=== PATIENT | female | born 1965 | race Caucasian/White ===

== ENCOUNTER → 2017-03-31 | Day surgery (SDC) | payer BC ==
[2017-03-27 11:59] LABS: CONDITION Y; Hematocrit 39.6 % (36.0-46.0); Hemoglobin 13.3 g/dL (12.2-16.2)
[2017-03-27 12:13] LABS: Basophils # (auto) 0 uL; Basophils % (auto) 1.1 % (0.0-2.0); Eosinophils # (auto) 0.5 uL; Lymphocytes # (auto) 1.4 uL; Lymphocytes % (auto) 30.7 % (10.0-50.0); Mean Corpuscular Hgb Conc. 33.5 g/dL (32.0-36.0); Mean Corpuscular Volume 92.4 fL (80.0-100.0); Mean Platelet Volume 8.4 fL (7.4-10.4); Monocytes # (auto) 0.2 uL; Monocytes % (auto) 4.8 % (0.0-12.0); Neutrophils # (auto) 2.4 uL; Neutrophils % (auto) 52.4 % (37.0-80.0); Platelet Count (auto) 305 10^3/uL (140-450); White Blood Cell 4.6 10^3/uL (4.4-10.8)
[2017-03-27 12:17] LABS: INR 0.92 (0.9-1.15); Partial Thromboplastin Time 25.7 sec (22.64-33.71)
[~2017-03-31] VITALS: Ht 160 cm; Wt 65.8 kg
[~2017-03-31] MED LIST: FLUMAZENIL 0.1 MG/ML INJ 10ML MDV IV ONE; MIDAZOLAM HCL 5 MG/ML-1ML VIAL ONE; NALOXONE HCL 0.4 MG/ML VIAL ONE; SODIUM CHLORIDE LOCK 10 ML ONE; diphenhdrAMINE HCL 50 MG/1 ML VL ONE; fentaNYL CITRATE 100 MCG/2 ML VL ONE
[2017-03-31] MEDS: fentaNYL CITRATE 100 MCG/2 ML VL ONE ×3 (08:47→08:57)
[2017-03-31] MEDS: MIDAZOLAM HCL 5 MG/ML-1ML VIAL ONE ×3 (08:47→08:57)
[2017-03-31 09:35] VITALS: BP 116/73
== END | disposition home or self-care (01) ==
LOC: GI 07:53 → EDUNIT# 07:53
PROVIDERS: ATTEND Internal Medicine Gastroenterology
DX: Z12.11 Encounter for screening for malignant neoplasm of colon (principal); K64.8 Other hemorrhoids; J45.909 Unspecified asthma, uncomplicated
CPT/HCPCS: 36415; 45378; 85025; 85610; 85730; J1200; J2250; J3010

== ENCOUNTER → 2017-07-13 | Outpatient (CLI) | payer BC | END | disposition home or self-care (01) | LOC: LAB 08:36 | PROVIDERS: ATTEND Obstetrics & Gynecology | DX: N95.1 Menopausal and female climacteric states (principal); R53.83 Other fatigue | CPT/HCPCS: 36415; 82670; 83001; 83002; 84403; 84443 ==

== ENCOUNTER → 2018-03-26 | Outpatient (CLI) | payer BC ==
[~2018-03-26] MED LIST changes: +ALBUAER3 IN; +CIPR-217 PO; -FLUMAZENIL 0.1 MG/ML INJ 10ML MDV IV ONE; -MIDAZOLAM HCL 5 MG/ML-1ML VIAL ONE; -NALOXONE HCL 0.4 MG/ML VIAL ONE; +PANT40TA2 PO; -SODIUM CHLORIDE LOCK 10 ML ONE; -diphenhdrAMINE HCL 50 MG/1 ML VL ONE; -fentaNYL CITRATE 100 MCG/2 ML VL ONE
== END | disposition home or self-care (01) ==
LOC: MERGE 09:04 → XYW 09:04
PROVIDERS: ATTEND Internal Medicine
DX: R10.9 Unspecified abdominal pain (principal)
CPT/HCPCS: 76700

== ENCOUNTER → 2018-04-04 | Outpatient (CLI) | payer BC ==
[2018-04-04 09:46] LABS: Urine Bacteria NONE SEEN /hpf (None Seen); Urine Blood 2+ /uL (Negative); Urine Mucus FEW (None Seen); Urine Specific Gravity 1.025 (1.001-1.035); Urine WBC 5 /hpf (0 - 5)
[2018-04-04 09:54] LABS: Hematocrit 40.7 % (36.0-46.0); Hemoglobin 13.5 g/dL (12.2-16.2); Mean Corpuscular Hemoglobin 30.2 pg (28.0-32.0); Mean Corpuscular Hgb Conc. 33.1 g/dL (32.0-36.0); Mean Corpuscular Volume 91.1 fL (80.0-100.0); Platelet Count (auto) 232 10^3/uL (140-450); Red Blood Cells 4.47 10^6/uL (4.0-5.20); Red Cell Distribution Width 13.3 % (11.8-14.3); White Blood Cell 3.9 10^3/uL (4.4-10.8)
[2018-04-04 09:56] LABS: Band Neutrophils % (manual) 0; Basophils % (manual) 0 (0.0-2.0); Blast Cells 0; INR 0.88 (0.9-1.15); Metamyelocytes % 0; Myelocytes % 0; Partial Thromboplastin Time 27.1 sec (23.78-33.04); Promyelocytes % 0; Prothrombin Time 9.5 sec (9.27-12.13); Reactive Lymphocytes 0
[2018-04-04 10:41] LABS: Albumin 3.8 g/dL (3.4-5.0); Bilirubin, Total 0.4 mg/dL (0.2-1.0); Calcium 8.5 mg/dL (8.5-10.1); Total Protein 7.5 g/dL (6.4-8.2)
[2018-04-04 11:03] LABS: Eosinophils % (manual) 18 (0-7); Lymphocytes % (manual) 30 (10.0-50.0); Monocytes % (manual) 8 (0-12)
== END | disposition home or self-care (01) ==
LOC: LAB 09:14 → MERGE 09:14
PROVIDERS: ATTEND Internal Medicine
DX: Z00.01 Encounter for general adult medical examination with abnormal findings (principal); R10.9 Unspecified abdominal pain
CPT/HCPCS: 36415; 80053; 80061; 81001; 82150; 82306; 83036; 83690; 84403; 84443; 85007; 85027; 85610; 85730

== ENCOUNTER 2018-04-09 07:52 | Day surgery (SDC) | payer BC ==
[~2018-04-09] VITALS: Ht 162.6 cm; Wt 64.4 kg
[2018-04-09] MEDS ORDERED: SODIUM CHLORIDE LOCK 10 ML ONE (08:03)
[2018-04-09] MEDS ORDERED: LIDOCAINE VISCOUS 2% 15ML UD ONE (08:03)
[2018-04-09] MEDS ORDERED: FLUMAZENIL 0.1 MG/ML INJ 10ML MDV IV ONE (08:04)
[2018-04-09] MEDS ORDERED: NALOXONE HCL 0.4 MG/ML VIAL ONE (08:04)
[2018-04-09] MEDS ORDERED: diphenhdrAMINE HCL 50 MG/1 ML VL ONE (08:04)
[2018-04-09] MEDS: fentaNYL CITRATE 100 MCG/2 ML VL ONE ×2 (09:00→09:03)
[2018-04-09] MEDS: MIDAZOLAM HCL 5 MG/ML-1ML VIAL ONE ×2 (09:00→09:03)
[2018-04-09 09:39] VITALS: BP 117/63
== END 2018-04-09 10:54 | disposition home or self-care (01) ==
LOC: SUR 07:52
PROVIDERS: ATTEND Internal Medicine Gastroenterology
DX: K29.50 Unspecified chronic gastritis without bleeding (principal); J45.909 Unspecified asthma, uncomplicated; Z88.0 Allergy status to penicillin; Z98.890 Other specified postprocedural states; Z80.49 Family history of malignant neoplasm of other genital organs; Z79.899 Other long term (current) drug therapy; Z79.2 Long term (current) use of antibiotics
CPT/HCPCS: 43239; 88305; 88342; J1200; J2250; J3010; A6257

== ENCOUNTER → 2018-04-18 | Outpatient (CLI) | payer BC ==
[2018-04-18 09:48] LABS: Basophils # (auto) 0.1 uL; Basophils % (auto) 1.4 % (0.0-2.0); Eosinophils # (auto) 0.4 uL; Eosinophils % (auto) 8.1 % (0.0-7.0); Hematocrit 38.6 % (36.0-46.0); Hemoglobin 12.9 g/dL (12.2-16.2); Lymphocytes # (auto) 1.6 uL; Lymphocytes % (auto) 33.9 % (10.0-50.0); Mean Corpuscular Hemoglobin 30.4 pg (28.0-32.0); Mean Corpuscular Hgb Conc. 33.4 g/dL (32.0-36.0); Mean Corpuscular Volume 91.2 fL (80.0-100.0); Monocytes # (auto) 0.3 uL; Monocytes % (auto) 5.9 % (0.0-12.0); Neutrophils # (auto) 2.3 uL; Neutrophils % (auto) 50.7 % (37.0-80.0); Nucleated Red Blood Cells % 0.1 %; Platelet Count (auto) 291 10^3/uL (140-450); Red Blood Cells 4.23 10^6/uL (4.0-5.20); Red Cell Distribution Width 13.2 % (11.8-14.3); White Blood Cell 4.6 10^3/uL (4.4-10.8)
[2018-04-18 09:52] LABS: Urine Bacteria NONE SEEN /hpf (None Seen); Urine Blood Negative /uL (Negative); Urine Specific Gravity 1.006 (1.001-1.035); Urine WBC 1 /hpf (0 - 5)
[2018-04-18 10:11] LABS: BUN/Creatinine Ratio 22.7; Calcium 8.4 mg/dL (8.5-10.1); Potassium 4.3 mmol/L (3.5-5.1)
== END | disposition home or self-care (01) ==
LOC: LAB 09:30
PROVIDERS: ATTEND Internal Medicine
DX: R10.30 Lower abdominal pain, unspecified (principal); Z88.0 Allergy status to penicillin
CPT/HCPCS: 36415; 80048; 81001; 85025

== ENCOUNTER → 2019-07-11 | Outpatient (CLI) | payer BC ==
[~2019-07-11] MED LIST changes: -CIPR-217 PO; -PANT40TA2 PO
[2019-07-11 07:52] LABS: Basophils # (auto) 0.1 uL; Basophils % (auto) 1.5 % (0.0-2.0); Eosinophils # (auto) 0.1 uL; Eosinophils % (auto) 1.7 % (0.0-7.0); Hematocrit 40.2 % (36.0-46.0); Hemoglobin 13.4 g/dL (12.2-16.2); Lymphocytes # (auto) 0.8 uL; Lymphocytes % (auto) 23.7 % (10.0-50.0); Mean Corpuscular Hemoglobin 31.3 pg (28.0-32.0); Mean Corpuscular Hgb Conc. 33.4 g/dL (32.0-36.0); Mean Corpuscular Volume 93.6 fL (80.0-100.0); Monocytes # (auto) 0.2 uL; Monocytes % (auto) 5.8 % (0.0-12.0); Neutrophils # (auto) 2.3 uL; Neutrophils % (auto) 67.3 % (37.0-80.0); Nucleated Red Blood Cells % 0.1 %; Platelet Count (auto) 238 10^3/uL (140-450); Red Blood Cells 4.29 10^6/uL (4.0-5.20); Red Cell Distribution Width 12.7 % (11.8-14.3); White Blood Cell 3.5 10^3/uL (4.4-10.8)
[2019-07-11 08:22] LABS: Albumin 4.2 g/dL (3.4-5.0); Calcium 9.3 mg/dL (8.5-10.1)
[2019-07-11 08:29] LABS: BUN/Creatinine Ratio 16.7; Bilirubin, Total 0.7 mg/dL (0.2-1.0); Total Protein 7.6 g/dL (6.4-8.2)
== END | disposition home or self-care (01) ==
LOC: LAB 07:22
PROVIDERS: ATTEND Internal Medicine
DX: E78.5 Hyperlipidemia, unspecified (principal); I10 Essential (primary) hypertension; Z88.0 Allergy status to penicillin
CPT/HCPCS: 36415; 80053; 80061; 85025

== ENCOUNTER → 2019-11-07 | Outpatient (CLI) | payer BC ==
[2019-11-07 08:05] LABS: Basophils # (auto) 0.1 10 ^3/uL (0-0.2); Basophils % (auto) 1.6 % (0.0-2.0); Eosinophils # (auto) 0.2 10 ^3/uL (0-0.8); Eosinophils % (auto) 6.3 % (0.0-7.0); Hematocrit 38.6 % (36.0-46.0); Hemoglobin 13.1 g/dL (12.2-16.2); Lymphocytes # (auto) 1.3 10 ^3/uL (0.4-5.4); Mean Corpuscular Hemoglobin 31.3 pg (28.0-32.0); Mean Corpuscular Hgb Conc. 33.9 g/dL (32.0-36.0); Mean Corpuscular Volume 92.2 fL (80.0-100.0); Monocytes # (auto) 0.2 10 ^3/uL (0-1.3); Monocytes % (auto) 5.5 % (0.0-12.0); Neutrophils # (auto) 1.5 10 ^3/uL (1.6-8.6); Neutrophils % (auto) 47.6 % (37.0-80.0); Platelet Count (auto) 236 10^3/uL (140-450); Red Blood Cells 4.18 10^6/uL (4.0-5.20); Red Cell Distribution Width 12.5 % (11.8-14.3); White Blood Cell 3.2 10^3/uL (4.4-10.8)
[2019-11-07 08:27] LABS: Calcium 8.9 mg/dL (8.5-10.1); Potassium 4.1 mmol/L (3.5-5.1)
[2019-11-07 08:35] LABS: BUN/Creatinine Ratio 19.3; Bilirubin, Total 0.4 mg/dL (0.2-1.0); Total Protein 7.3 g/dL (6.4-8.2)
== END | disposition home or self-care (01) ==
LOC: LAB 07:20
PROVIDERS: ATTEND Obstetrics & Gynecology
DX: E78.5 Hyperlipidemia, unspecified (principal); R53.83 Other fatigue
CPT/HCPCS: 36415; 80053; 80061; 83036; 85025

== ENCOUNTER → 2020-08-03 | Outpatient (CLI) | payer OTHER | END | disposition home or self-care (01) | LOC: LAB 11:40 | PROVIDERS: ATTEND Internal Medicine | DX: Z20.828 Contact with and (suspected) exposure to other viral communicable diseases (principal) | CPT/HCPCS: C9803; U0003 ==

== ENCOUNTER → 2020-10-02 | Outpatient (CLI) | payer BC ==
[2020-10-02 09:08] LABS: Basophils # (auto) 0.1 10 ^3/uL (0-0.2); Basophils % (auto) 1.9 % (0.0-2.0); Eosinophils # (auto) 0.1 10 ^3/uL (0-0.8); Eosinophils % (auto) 4.5 % (0.0-7.0); Hematocrit 39.6 % (36.0-46.0); Hemoglobin 13.4 g/dL (12.2-16.2); Lymphocytes % (auto) 36.2 % (10.0-50.0); Mean Corpuscular Hemoglobin 31.1 pg (28.0-32.0); Mean Corpuscular Hgb Conc. 33.8 g/dL (32.0-36.0); Mean Corpuscular Volume 91.9 fL (80.0-100.0); Monocytes # (auto) 0.2 10 ^3/uL (0-1.3); Monocytes % (auto) 5.7 % (0.0-12.0); Neutrophils # (auto) 1.4 10 ^3/uL (1.6-8.6); Neutrophils % (auto) 51.7 % (37.0-80.0); Nucleated Red Blood Cells % 0.1 %; Platelet Count (auto) 215 10^3/uL (140-450); Red Cell Distribution Width 12.5 % (11.8-14.3); White Blood Cell 2.7 10^3/uL (4.4-10.8)
[2020-10-02 09:31] LABS: Potassium 3.8 mmol/L (3.5-5.1)
[2020-10-02 09:41] LABS: Albumin 4.2 g/dL (3.4-5.0); BUN/Creatinine Ratio 21.8; Bilirubin, Total 0.6 mg/dL (0.2-1.0); Calcium 8.9 mg/dL (8.5-10.1)
== END | disposition home or self-care (01) ==
LOC: LAB 08:35
PROVIDERS: ATTEND Obstetrics & Gynecology
DX: Z00.00 Encounter for general adult medical examination without abnormal findings (principal)
CPT/HCPCS: 36415; 80053; 80061; 82670; 83036; 84403; 84443; 85025; 86335

== ENCOUNTER → 2021-01-01 | Outpatient (CLI) | payer BC ==
[2021-01-01 11:59] LABS: Basophils # (auto) 0.1 10 ^3/uL (0-0.2); Basophils % (auto) 1.2 % (0.0-2.0); Eosinophils # (auto) 0.1 10 ^3/uL (0-0.8); Eosinophils % (auto) 1.4 % (0.0-7.0); Hematocrit 40.1 % (36.0-46.0); Hemoglobin 13.4 g/dL (12.2-16.2); Lymphocytes # (auto) 1.4 10 ^3/uL (0.4-5.4); Lymphocytes % (auto) 29.6 % (10.0-50.0); Mean Corpuscular Hemoglobin 30.4 pg (28.0-32.0); Mean Corpuscular Hgb Conc. 33.3 g/dL (32.0-36.0); Mean Corpuscular Volume 91.4 fL (80.0-100.0); Monocytes # (auto) 0.2 10 ^3/uL (0-1.3); Monocytes % (auto) 4.4 % (0.0-12.0); Neutrophils % (auto) 63.4 % (37.0-80.0); Nucleated Red Blood Cells % 0.1 %; Platelet Count (auto) 246 10^3/uL (140-450); Red Blood Cells 4.39 10^6/uL (4.0-5.20); Red Cell Distribution Width 12.6 % (11.8-14.3); White Blood Cell 4.8 10^3/uL (4.4-10.8)
[2021-01-01 12:06] LABS: INR 0.97 (0.9-1.15); Partial Thromboplastin Time 24.9 sec (23.0-31.2)
[2021-01-01 12:24] LABS: Albumin 4.1 g/dL (3.4-5.0); BUN/Creatinine Ratio 21.9; Calcium 8.8 mg/dL (8.5-10.1); Potassium 3.6 mmol/L (3.5-5.1)
[2021-01-01 12:26] LABS: Bilirubin, Total 0.7 mg/dL (0.2-1.0); Total Protein 7.5 g/dL (6.4-8.2)
[2021-01-01 12:30] LABS: Folate (Folic Acid) 20.19 ng/mL (5.38-24)
== END | disposition home or self-care (01) ==
LOC: LAB 11:31
PROVIDERS: ATTEND Internal Medicine
DX: E78.9 Disorder of lipoprotein metabolism, unspecified (principal)
CPT/HCPCS: 36415; 80053; 82306; 82607; 82746; 83036; 84443; 85025; 85610; 85730

== ENCOUNTER 2021-02-20 08:00 | Outpatient (CLI) | payer BC ==
[2021-02-20 09:39] LABS: Cholesterol 182 mg/dL (< 200); HDL Cholesterol 79 mg/dL (40-59); LDL Cholesterol 94 mg/dL (< 100); Triglycerides 45 mg/dL (< 150)
== END 2021-02-20 08:03 | disposition home or self-care (01) ==
LOC: LAB 08:00
PROVIDERS: ATTEND Internal Medicine
DX: Z00.00 Encounter for general adult medical examination without abnormal findings (principal)
CPT/HCPCS: 36415; 80061

== ENCOUNTER → 2021-04-21 | Outpatient (CLI) | payer BC ==
[2021-04-21 08:43] LABS: Calcium 8.9 mg/dL (8.5-10.1); Potassium 3.9 mmol/L (3.5-5.1)
[2021-04-21 08:47] LABS: BUN/Creatinine Ratio 18.3; Bilirubin, Total 0.7 mg/dL (0.2-1.0); Total Protein 7.6 g/dL (6.4-8.2)
== END | disposition home or self-care (01) ==
LOC: LAB 08:11
PROVIDERS: ATTEND Internal Medicine
DX: I10 Essential (primary) hypertension (principal)
CPT/HCPCS: 36415; 80053

== ENCOUNTER → 2021-09-17 | Outpatient (CLI) | payer BC ==
[~2021-09-17] MED LIST changes: +BUPIVACAINE HCL 0.25% P/F 10 ML VIAL ONE; +IOHEXOL 300 MG/ML 100ML BOTTLE IJ ONE; +LIDOCAINE 2%HCL (LOCAL ANESTH.) INJ 20ML MDV ONE; +diphenhdrAMINE HCL 50 MG/1 ML VL ONE; +methylPREDNISolone ACETATE 80 MG/ML VL ONE
== END | disposition home or self-care (01) ==
LOC: XY 13:54
PROVIDERS: ATTEND Orthopaedic Surgery Adult Reconstructive Orthopaedic Surgery
DX: M25.511 Pain in right shoulder (principal)
CPT/HCPCS: 20610; 73020; J1040; J1200; Q9967; 76000; J3490

== ENCOUNTER → 2021-10-08 | Outpatient (CLI) | payer BC ==
[~2021-10-08] MED LIST changes: -BUPIVACAINE HCL 0.25% P/F 10 ML VIAL ONE; -IOHEXOL 300 MG/ML 100ML BOTTLE IJ ONE; -LIDOCAINE 2%HCL (LOCAL ANESTH.) INJ 20ML MDV ONE; -diphenhdrAMINE HCL 50 MG/1 ML VL ONE; -methylPREDNISolone ACETATE 80 MG/ML VL ONE
== END | disposition home or self-care (01) ==
LOC: LAB 12:19
PROVIDERS: ATTEND Internal Medicine
DX: U07.1 COVID-19 (principal)
CPT/HCPCS: C9803; U0003

== ENCOUNTER → 2021-12-22 | Outpatient (CLI) | payer BC ==
[2021-12-22 10:27] LABS: Basophils # (auto) 0 10 ^3/uL (0-0.2); Basophils % (auto) 0.9 % (0.0-2.0); Eosinophils # (auto) 0.1 10 ^3/uL (0-0.8); Eosinophils % (auto) 2.3 % (0.0-7.0); Hematocrit 40.7 % (36.0-46.0); Hemoglobin 13.9 g/dL (12.2-16.2); Lymphocytes # (auto) 1.2 10 ^3/uL (0.4-5.4); Lymphocytes % (auto) 30.6 % (10.0-50.0); Mean Corpuscular Hemoglobin 31.2 pg (28.0-32.0); Mean Corpuscular Hgb Conc. 34.1 g/dL (32.0-36.0); Mean Corpuscular Volume 91.4 fL (80.0-100.0); Monocytes # (auto) 0.2 10 ^3/uL (0-1.3); Monocytes % (auto) 6.2 % (0.0-12.0); Neutrophils # (auto) 2.4 10 ^3/uL (1.6-8.6); Nucleated Red Blood Cells % 0.1 %; Red Blood Cells 4.45 10^6/uL (4.0-5.20); Red Cell Distribution Width 12.6 % (11.8-14.3)
[2021-12-22 10:53] LABS: Albumin 4.1 g/dL (3.4-5.0); BUN/Creatinine Ratio 16.1; Calcium 8.9 mg/dL (8.5-10.1); Potassium 3.8 mmol/L (3.5-5.1)
[2021-12-22 10:55] LABS: Bilirubin, Total 0.7 mg/dL (0.2-1.0); Total Protein 7.5 g/dL (6.4-8.2)
[2021-12-23 09:21] LABS: Urine Bacteria NONE SEEN /hpf (None Seen); Urine Blood TRACE /uL (Negative); Urine Specific Gravity 1.008 (1.001-1.035); Urine WBC 4 /hpf (0 - 5)
== END | disposition home or self-care (01) ==
LOC: LAB 09:49
PROVIDERS: ATTEND Internal Medicine
DX: Z00.00 Encounter for general adult medical examination without abnormal findings (principal)
CPT/HCPCS: 36415; 80053; 81001; 84439; 84443; 85025

== ENCOUNTER → 2022-04-22 | Outpatient (CLI) | payer BC ==
[2022-04-22 16:54] LABS: Basophils # (auto) 0.1 10 ^3/uL (0-0.2); Basophils % (auto) 1.3 % (0.0-2.0); Eosinophils # (auto) 0.4 10 ^3/uL (0-0.8); Eosinophils % (auto) 7.1 % (0.0-7.0); Hematocrit 43.2 % (36.0-46.0); Lymphocytes # (auto) 1.8 10 ^3/uL (0.4-5.4); Lymphocytes % (auto) 32.8 % (10.0-50.0); Mean Corpuscular Hemoglobin 30.2 pg (28.0-32.0); Mean Corpuscular Hgb Conc. 32.3 g/dL (32.0-36.0); Mean Corpuscular Volume 93.5 fL (80.0-100.0); Monocytes # (auto) 0.3 10 ^3/uL (0-1.3); Neutrophils # (auto) 2.9 10 ^3/uL (1.6-8.6); Neutrophils % (auto) 53.8 % (37.0-80.0); Red Blood Cells 4.62 10^6/uL (4.0-5.20); Red Cell Distribution Width 12.5 % (11.8-14.3); White Blood Cell 5.4 10^3/uL (4.4-10.8)
[2022-04-22 17:16] LABS: Albumin 4.5 g/dL (3.4-5.0); Calcium 9.4 mg/dL (8.5-10.1); Potassium 4.1 mmol/L (3.5-5.1)
[2022-04-22 17:20] LABS: BUN/Creatinine Ratio 14.9; Bilirubin, Total 0.6 mg/dL (0.2-1.0); CRP High Sensitivity 0.07 mg/dL (< 0.3); Total Protein 7.7 g/dL (6.4-8.2)
[2022-04-22 17:21] LABS: INR 0.94 (0.9-1.15); Partial Thromboplastin Time 26.8 sec (24.6-33.4)
[2022-04-22 17:24] LABS: Folate (Folic Acid) 20.97 ng/mL (5.38-24)
== END | disposition home or self-care (01) ==
LOC: LAB 16:11
PROVIDERS: ATTEND Internal Medicine
DX: I10 Essential (primary) hypertension (principal)
CPT/HCPCS: 36415; 80053; 82306; 82607; 82746; 84443; 85025; 85610; 85652; 85730; 86141

== ENCOUNTER → 2022-07-29 | Outpatient (CLI) | payer BC | END | disposition home or self-care (01) | LOC: LAB 13:20 | PROVIDERS: ATTEND Obstetrics & Gynecology | DX: R53.83 Other fatigue (principal) | CPT/HCPCS: 82306; 82607 ==

== ENCOUNTER → 2022-08-04 | Outpatient (CLI) | payer BC ==
[~2022-08-04] VITALS: Ht 160 cm; Wt 63.5 kg
[~2022-08-04] MED LIST changes: +ADENOSINE 53 MG in GIVE UN-DILUTED 0 ML IV ONE
== END | disposition home or self-care (01) ==
LOC: XYW 07:41 → EEVIPCON 07:41
PROVIDERS: ATTEND Internal Medicine
DX: R07.9 Chest pain, unspecified (principal); R06.02 Shortness of breath; E78.5 Hyperlipidemia, unspecified
CPT/HCPCS: 78452; 93017; A9500; J0153

== ENCOUNTER → 2022-08-17 | Outpatient (CLI) | payer BC ==
[~2022-08-17] MED LIST changes: -ADENOSINE 53 MG in GIVE UN-DILUTED 0 ML IV ONE
[2022-08-17 11:07] LABS: BUN/Creatinine Ratio 16.7; Calcium 8.8 mg/dL (8.5-10.1)
[2022-08-17 11:16] LABS: Basophils # (auto) 0.1 10 ^3/uL (0-0.2); Eosinophils # (auto) 0.1 10 ^3/uL (0-0.8); Eosinophils % (auto) 1.2 % (0.0-7.0); Hematocrit 42.9 % (36.0-46.0); Hemoglobin 14.1 g/dL (12.2-16.2); Lymphocytes # (auto) 1.2 10 ^3/uL (0.4-5.4); Lymphocytes % (auto) 21.6 % (10.0-50.0); Mean Corpuscular Hemoglobin 30.6 pg (28.0-32.0); Mean Corpuscular Volume 92.8 fL (80.0-100.0); Monocytes # (auto) 0.3 10 ^3/uL (0-1.3); Neutrophils # (auto) 4.1 10 ^3/uL (1.6-8.6); Neutrophils % (auto) 71.2 % (37.0-80.0); Nucleated Red Blood Cells % 0.1 %; Red Blood Cells 4.62 10^6/uL (4.0-5.20); Red Cell Distribution Width 12.1 % (11.8-14.3); White Blood Cell 5.7 10^3/uL (4.4-10.8)
== END | disposition home or self-care (01) ==
LOC: LAB 10:17
PROVIDERS: ATTEND Psychiatry & Neurology Neurology
DX: G50.0 Trigeminal neuralgia (principal)
CPT/HCPCS: 36415; 80048; 85025

== ENCOUNTER → 2022-09-06 | Outpatient (CLI) | payer BC ==
[2022-09-06 14:39] LABS: INR 0.96 (0.9-1.15); Partial Thromboplastin Time 25.9 sec (24.6-33.4)
[2022-09-06 14:43] LABS: Basophils # (auto) 0 10 ^3/uL (0-0.2); Basophils % (auto) 1.1 % (0.0-2.0); Eosinophils # (auto) 0.1 10 ^3/uL (0-0.8); Eosinophils % (auto) 3.4 % (0.0-7.0); Hemoglobin 13.3 g/dL (12.2-16.2); Lymphocytes # (auto) 0.9 10 ^3/uL (0.4-5.4); Lymphocytes % (auto) 21.8 % (10.0-50.0); Mean Corpuscular Hemoglobin 31.9 pg (28.0-32.0); Mean Corpuscular Hgb Conc. 34.9 g/dL (32.0-36.0); Mean Corpuscular Volume 91.5 fL (80.0-100.0); Monocytes # (auto) 0.3 10 ^3/uL (0-1.3); Monocytes % (auto) 6.5 % (0.0-12.0); Neutrophils # (auto) 2.8 10 ^3/uL (1.6-8.6); Neutrophils % (auto) 67.2 % (37.0-80.0); Nucleated Red Blood Cells % 0.1 %; Red Blood Cells 4.15 10^6/uL (4.0-5.20); Red Cell Distribution Width 12.2 % (11.8-14.3); White Blood Cell 4.2 10^3/uL (4.4-10.8)
[2022-09-06 14:57] LABS: Albumin 3.9 g/dL (3.4-5.0); Calcium 8.6 mg/dL (8.5-10.1); Potassium 3.6 mmol/L (3.5-5.1)
[2022-09-06 14:59] LABS: BUN/Creatinine Ratio 12.5
[2022-09-06 15:01] LABS: Bilirubin, Total 0.4 mg/dL (0.2-1.0); Total Protein 7.1 g/dL (6.4-8.2)
== END | disposition home or self-care (01) ==
LOC: LAB 14:07
PROVIDERS: ATTEND Internal Medicine
DX: I10 Essential (primary) hypertension (principal)
CPT/HCPCS: 36415; 80053; 85025; 85610; 85730

== ENCOUNTER → 2022-12-02 | Outpatient (CLI) | payer BC ==
[2022-12-02 14:27] LABS: Basophils # (auto) 0 10 ^3/uL (0-0.2)
[2022-12-02 14:33] LABS: Eosinophils # (auto) 0.1 10 ^3/uL (0-0.8); Eosinophils % (auto) 1.9 % (0.0-7.0); Hematocrit 39.3 % (36.0-46.0); Hemoglobin 13.3 g/dL (12.2-16.2); Lymphocytes # (auto) 1.3 10 ^3/uL (0.4-5.4); Lymphocytes % (auto) 30.6 % (10.0-50.0); Mean Corpuscular Hemoglobin 31.3 pg (28.0-32.0); Mean Corpuscular Hgb Conc. 33.8 g/dL (32.0-36.0); Mean Corpuscular Volume 92.6 fL (80.0-100.0); Monocytes # (auto) 0.3 10 ^3/uL (0-1.3); Monocytes % (auto) 7.6 % (0.0-12.0); Neutrophils # (auto) 2.6 10 ^3/uL (1.6-8.6); Neutrophils % (auto) 58.9 % (37.0-80.0); Nucleated Red Blood Cells % 0.1 %; Red Blood Cells 4.24 10^6/uL (4.0-5.20); Red Cell Distribution Width 12.6 % (11.8-14.3); White Blood Cell 4.4 10^3/uL (4.4-10.8)
[2022-12-02 15:00] LABS: Albumin 3.9 g/dL (3.4-5.0); Calcium 8.4 mg/dL (8.5-10.1); Potassium 3.5 mmol/L (3.5-5.1)
[2022-12-02 15:03] LABS: BUN/Creatinine Ratio 14.8 (10.0-20.0); Bilirubin, Total 0.8 mg/dL (0.2-1.0)
== END | disposition home or self-care (01) ==
LOC: LAB 14:09
PROVIDERS: ATTEND Internal Medicine
DX: I10 Essential (primary) hypertension (principal)
CPT/HCPCS: 36415; 80053; 85025

== ENCOUNTER → 2023-02-22 | Outpatient (CLI) | payer BC ==
[2023-02-22 14:22] LABS: Albumin 3.9 g/dL (3.4-5.0); Calcium 7.5 mg/dL (8.5-10.1); Potassium 3.5 mmol/L (3.5-5.1)
[2023-02-22 14:26] LABS: BUN/Creatinine Ratio 13.2 (10.0-20.0); Bilirubin, Total 0.4 mg/dL (0.2-1.0); Total Protein 6.9 g/dL (6.4-8.2)
== END | disposition home or self-care (01) ==
LOC: LAB 13:33
PROVIDERS: ATTEND Internal Medicine
DX: I10 Essential (primary) hypertension (principal)
CPT/HCPCS: 36415; 80053

== ENCOUNTER → 2023-06-02 | Outpatient (CLI) | payer BC ==
[2023-06-02 10:30] LABS: Basophils # (auto) 0.1 10 ^3/uL (0-0.2); Basophils % (auto) 1.1 % (0.0-2.0); Eosinophils # (auto) 0.1 10 ^3/uL (0-0.8); Eosinophils % (auto) 2.5 % (0.0-7.0); Hematocrit 36.7 % (36.0-46.0); Hemoglobin 12.9 g/dL (12.2-16.2); Lymphocytes # (auto) 1.2 10 ^3/uL (0.4-5.4); Lymphocytes % (auto) 25.3 % (10.0-50.0); Mean Corpuscular Hgb Conc. 35.1 g/dL (32.0-36.0); Mean Corpuscular Volume 94.1 fL (80.0-100.0); Monocytes # (auto) 0.3 10 ^3/uL (0-1.3); Monocytes % (auto) 7.5 % (0.0-12.0); Neutrophils # (auto) 2.9 10 ^3/uL (1.6-8.6); Neutrophils % (auto) 63.6 % (37.0-80.0); Red Cell Distribution Width 12.8 % (11.8-14.3); White Blood Cell 4.6 10^3/uL (4.4-10.8)
[2023-06-02 10:55] LABS: Anion Gap 6 (5-15); Carbon Dioxide 29 mmol/L (20-30); Chloride 98 mmol/L (98-107); Potassium 3.9 mmol/L (3.5-5.1); Sodium 133 mmol/L (136-145)
[2023-06-02 10:57] LABS: Calcium 8.7 mg/dL (8.5-10.1)
[2023-06-02 11:02] LABS: BUN/Creatinine Ratio 16.5 (10.0-20.0); Blood Urea Nitrogen 13 mg/dL (9-23); Glucose 90 mg/dL (74-106)
[2023-06-02 11:13] LABS: Partial Thromboplastin Time 28.1 SEC (24.5-34.5); Prothrombin Time 10.5 sec (9.3-11.8)
== END | disposition home or self-care (01) ==
LOC: LAB 10:07
DX: Z01.812 Encounter for preprocedural laboratory examination (principal); G50.0 Trigeminal neuralgia
CPT/HCPCS: 36415; 80048; 85025; 85610; 85730

== ENCOUNTER → 2023-10-13 | Outpatient (CLI) | payer BC ==
[2023-10-13 11:05] LABS: Basophils # (auto) 0.1 10 ^3/uL (0-0.2); Basophils % (auto) 1.2 % (0.0-2.0); Eosinophils # (auto) 0.1 10 ^3/uL (0-0.8); Eosinophils % (auto) 1.1 % (0.0-7.0); Hematocrit 42.1 % (36.0-46.0); Hemoglobin 14.1 g/dL (12.2-16.2); Lymphocytes # (auto) 1.2 10 ^3/uL (0.4-5.4); Lymphocytes % (auto) 23.8 % (10.0-50.0); Mean Corpuscular Hemoglobin 31.2 pg (28.0-32.0); Mean Corpuscular Hgb Conc. 33.4 g/dL (32.0-36.0); Mean Corpuscular Volume 93.4 fL (80.0-100.0); Monocytes # (auto) 0.3 10 ^3/uL (0-1.3); Monocytes % (auto) 5.2 % (0.0-12.0); Neutrophils # (auto) 3.4 10 ^3/uL (1.6-8.6); Neutrophils % (auto) 68.7 % (37.0-80.0); Nucleated Red Blood Cells % 0.1 %; Red Blood Cells 4.51 10^6/uL (4.0-5.20); Red Cell Distribution Width 12.6 % (11.8-14.3)
[2023-10-13 11:35] LABS: Alanine Aminotransferase 21 U/L (7-40); Albumin 4.8 g/dL (3.2-4.8); Alkaline Phosphatase 75 U/L (46-116); Anion Gap 6 (5-15); Aspartate Aminotransferase 21 U/L (13-40); BUN/Creatinine Ratio 10.1 (10.0-20.0); Bilirubin, Total 0.8 mg/dL (0.2-1.0); Blood Urea Nitrogen 8 mg/dL (9-23); Calcium 9.4 mg/dL (8.5-10.1); Carbon Dioxide 29 mmol/L (20-30); Chloride 103 mmol/L (98-107); Glucose 96 mg/dL (74-106); Potassium 3.7 mmol/L (3.5-5.1); Sodium 138 mmol/L (136-145); Total Protein 6.9 g/dL (5.7-8.2)
== END | disposition home or self-care (01) ==
LOC: LAB 10:55
PROVIDERS: ATTEND Psychiatry & Neurology Neurology
DX: G43.009 Migraine without aura, not intractable, without status migrainosus (principal)
CPT/HCPCS: 36415; 80053; 85025

== ENCOUNTER → 2023-12-22 | Outpatient (CLI) | payer BC | END | disposition home or self-care (01) | LOC: LAB 14:18 | PROVIDERS: ATTEND Family Medicine | DX: L82.1 Other seborrheic keratosis (principal); D48.5 Neoplasm of uncertain behavior of skin ==

== ENCOUNTER → 2024-02-08 | Outpatient (CLI) | payer BC | END | disposition home or self-care (01) | LOC: XYW 08:09 | PROVIDERS: ATTEND Internal Medicine | DX: E04.1 Nontoxic single thyroid nodule (principal) | CPT/HCPCS: 78014; A9516 ==

== ENCOUNTER → 2024-03-15 | Outpatient (CLI) | payer BC ==
[2024-03-15 10:29] LABS: Basophils # (auto) 0.1 10 ^3/uL (0-0.2); Basophils % (auto) 1.6 % (0.0-2.0); Eosinophils # (auto) 0.1 10 ^3/uL (0-0.8); Eosinophils % (auto) 2.3 % (0.0-7.0); Hematocrit 39.2 % (36.0-46.0); Hemoglobin 13.5 g/dL (12.2-16.2); Lymphocytes # (auto) 1.4 10 ^3/uL (0.4-5.4); Lymphocytes % (auto) 34.8 % (10.0-50.0); Mean Corpuscular Hemoglobin 32.1 pg (28.0-32.0); Mean Corpuscular Hgb Conc. 34.4 g/dL (32.0-36.0); Mean Corpuscular Volume 93.3 fL (80.0-100.0); Monocytes # (auto) 0.2 10 ^3/uL (0-1.3); Monocytes % (auto) 5.1 % (0.0-12.0); Neutrophils # (auto) 2.3 10 ^3/uL (1.6-8.6); Neutrophils % (auto) 56.2 % (37.0-80.0); Nucleated Red Blood Cells % 0.2 %; Red Blood Cells 4.21 10^6/uL (4.0-5.20); Red Cell Distribution Width 12.8 % (11.8-14.3); White Blood Cell 4.2 10^3/uL (4.4-10.8)
[2024-03-15 10:40] LABS: Alanine Aminotransferase 19 U/L (7-40); Albumin 4.7 g/dL (3.2-4.8); Alkaline Phosphatase 77 U/L (46-116); Anion Gap 5 (5-15); Aspartate Aminotransferase 12 U/L (13-40); BUN/Creatinine Ratio 11.9 (10.0-20.0); Bilirubin, Total 0.8 mg/dL (0.2-1.0); Blood Urea Nitrogen 10 mg/dL (9-23); Calcium 9.5 mg/dL (8.7-10.4); Carbon Dioxide 29 mmol/L (20-30); Chloride 105 mmol/L (98-107); Glucose 99 mg/dL (74-106); Sodium 139 mmol/L (136-145); Total Protein 6.9 g/dL (5.7-8.2)
== END | disposition home or self-care (01) ==
LOC: LAB 09:58
PROVIDERS: ATTEND Internal Medicine
DX: Z00.01 Encounter for general adult medical examination with abnormal findings (principal)
CPT/HCPCS: 36415; 80053; 84403; 85025

== ENCOUNTER → 2024-06-05 | Outpatient (CLI) | payer BC ==
[2024-06-05 13:30] LABS: Basophils # (auto) 0 10 ^3/uL (0-0.2); Basophils % (auto) 1.1 % (0.0-2.0); Eosinophils # (auto) 0.1 10 ^3/uL (0-0.8); Eosinophils % (auto) 2.7 % (0.0-7.0); Hematocrit 41.5 % (36.0-46.0); Hemoglobin 13.8 g/dL (12.2-16.2); Lymphocytes # (auto) 1.4 10 ^3/uL (0.4-5.4); Lymphocytes % (auto) 32.6 % (10.0-50.0); Mean Corpuscular Hemoglobin 31.6 pg (28.0-32.0); Mean Corpuscular Hgb Conc. 33.4 g/dL (32.0-36.0); Mean Corpuscular Volume 94.8 fL (80.0-100.0); Monocytes # (auto) 0.2 10 ^3/uL (0-1.3); Monocytes % (auto) 5.1 % (0.0-12.0); Neutrophils # (auto) 2.5 10 ^3/uL (1.6-8.6); Neutrophils % (auto) 58.5 % (37.0-80.0); Nucleated Red Blood Cells % 0.2 %; Platelet Count (auto) 259 10^3/uL (140-450); Red Blood Cells 4.37 10^6/uL (4.0-5.20); Red Cell Distribution Width 12.8 % (11.8-14.3); White Blood Cell 4.3 10^3/uL (4.4-10.8)
[2024-06-05 13:34] LABS: Alanine Aminotransferase 21 U/L (7-40); Albumin 4.5 g/dL (3.2-4.8); Alkaline Phosphatase 71 U/L (46-116); Anion Gap 6 (5-15); Aspartate Aminotransferase 14 U/L (13-40); BUN/Creatinine Ratio 12.4 (10.0-20.0); Bilirubin, Total 0.6 mg/dL (0.2-1.0); Blood Urea Nitrogen 13 mg/dL (9-23); Calcium 9.2 mg/dL (8.7-10.4); Carbon Dioxide 28 mmol/L (20-31); Chloride 107 mmol/L (98-107); Glucose 91 mg/dL (74-106); Potassium 4.3 mmol/L (3.5-5.1); Sodium 141 mmol/L (136-145)
[2024-06-05 13:35] LABS: Total Protein 6.7 g/dL (5.7-8.2)
== END | disposition home or self-care (01) ==
LOC: LAB 13:03
PROVIDERS: ATTEND Internal Medicine
DX: I10 Essential (primary) hypertension (principal)
CPT/HCPCS: 36415; 80053; 85025

== ENCOUNTER → 2024-06-12 | Outpatient (CLI) | payer BC | END | disposition home or self-care (01) | LOC: LAB 09:44 | DX: E28.1 Androgen excess (principal) | CPT/HCPCS: 84270 ==

== ENCOUNTER → 2024-10-24 | Outpatient (CLI) | payer BC ==
[2024-10-24 07:13] LABS: Basophils # (auto) 0 10 ^3/uL (0-0.2); Basophils % (auto) 1.4 % (0.0-2.0); Eosinophils # (auto) 0.1 10 ^3/uL (0-0.8); Eosinophils % (auto) 4.2 % (0.0-7.0); Hemoglobin 14.4 g/dL (12.2-16.2); Lymphocytes # (auto) 1.3 10 ^3/uL (0.4-5.4); Mean Corpuscular Hemoglobin 31.6 pg (28.0-32.0); Mean Corpuscular Hgb Conc. 33.4 g/dL (32.0-36.0); Mean Corpuscular Volume 94.5 fL (80.0-100.0); Monocytes # (auto) 0.2 10 ^3/uL (0-1.3); Monocytes % (auto) 6.6 % (0.0-12.0); Neutrophils # (auto) 1.7 10 ^3/uL (1.6-8.6); Neutrophils % (auto) 50.8 % (37.0-80.0); Nucleated Red Blood Cells % 0.1 %; Platelet Count (auto) 252 10^3/uL (140-450); Red Blood Cells 4.55 10^6/uL (4.0-5.20); White Blood Cell 3.4 10^3/uL (4.4-10.8)
[2024-10-24 07:40] LABS: Alanine Aminotransferase 22 U/L (7-40); Albumin 4.6 g/dL (3.2-4.8); Alkaline Phosphatase 71 U/L (46-116); Anion Gap 5 (5-15); Aspartate Aminotransferase 14 U/L (13-40); BUN/Creatinine Ratio 16.9 (10.0-20.0); Bilirubin, Total 0.8 mg/dL (0.2-1.0); Blood Urea Nitrogen 14 mg/dL (9-23); Calcium 9.5 mg/dL (8.7-10.4); Carbon Dioxide 29 mmol/L (20-31); Chloride 104 mmol/L (98-107); Glucose 89 mg/dL (74-106); Potassium 4.2 mmol/L (3.5-5.1); Sodium 138 mmol/L (136-145); Total Protein 6.8 g/dL (5.7-8.2); Triglycerides 90 mg/dL (< 150)
[2024-10-24 07:44] LABS: Cholesterol 210 mg/dL (< 200); HDL Cholesterol 76 mg/dL (40-59); LDL Cholesterol 116 mg/dL (< 100)
== END | disposition home or self-care (01) ==
LOC: LAB 06:57
PROVIDERS: ATTEND Internal Medicine
DX: I10 Essential (primary) hypertension (principal); R06.02 Shortness of breath; E78.5 Hyperlipidemia, unspecified
CPT/HCPCS: 36415; 80053; 80061; 84443; 85025

== ENCOUNTER → 2024-10-31 | Outpatient (CLI) | payer BC ==
[2024-10-31 13:16] LABS: Basophils # (auto) 0.1 10 ^3/uL (0-0.2); Basophils % (auto) 1.1 % (0.0-2.0); Eosinophils # (auto) 0.1 10 ^3/uL (0-0.8); Lymphocytes # (auto) 1.6 10 ^3/uL (0.4-5.4); Mean Corpuscular Hgb Conc. 34.2 g/dL (32.0-36.0); Mean Corpuscular Volume 93.6 fL (80.0-100.0); Monocytes # (auto) 0.4 10 ^3/uL (0-1.3); Monocytes % (auto) 4.8 % (0.0-12.0); Neutrophils # (auto) 5.7 10 ^3/uL (1.6-8.6); Neutrophils % (auto) 73.1 % (37.0-80.0); Nucleated Red Blood Cells % 0.1 %; Platelet Count (auto) 256 10^3/uL (140-450); Red Blood Cells 4.39 10^6/uL (4.0-5.20); Red Cell Distribution Width 12.8 % (11.8-14.3); White Blood Cell 7.8 10^3/uL (4.4-10.8)
== END | disposition home or self-care (01) ==
LOC: LAB 12:46
PROVIDERS: ATTEND Internal Medicine
DX: D72.819 Decreased white blood cell count, unspecified (principal)
CPT/HCPCS: 36415; 85025

== ENCOUNTER → 2024-11-08 | Outpatient (CLI) | payer BC ==
[2024-11-10 08:07] LABS: AFP Serum Tumor Marker 2.3 ng/mL (0.0-9.2)
== END | disposition home or self-care (01) ==
LOC: LAB 10:53
PROVIDERS: ATTEND Internal Medicine
DX: R74.01 Elevation of levels of liver transaminase levels (principal)
CPT/HCPCS: 36415; 82105; 82626; 84403

== ENCOUNTER → 2025-06-10 | Outpatient (CLI) | payer BC ==
[2025-06-10 07:17] LABS: Triglycerides 80 mg/dL (< 150)
[2025-06-10 07:21] LABS: Cholesterol 212 mg/dL (< 200); HDL Cholesterol 82 mg/dL (40-59)
== END | disposition home or self-care (01) ==
LOC: LAB 06:25
PROVIDERS: ATTEND Internal Medicine
DX: I10 Essential (primary) hypertension
CPT/HCPCS: 36415; 80061; 83036; 84403

== ENCOUNTER → 2025-06-23 | Outpatient (CLI) | payer BC ==
[2025-06-23 11:47] LABS: Chloride 100 mmol/L (98-107); Potassium 3.7 mmol/L (3.5-5.1); Sodium 137 mmol/L (136-145)
[2025-06-23 11:48] LABS: Anion Gap 7 (5-15); Calcium 8.8 mg/dL (8.7-10.4); Carbon Dioxide 30 mmol/L (20-31)
[2025-06-23 11:53] LABS: BUN/Creatinine Ratio 17.8 (10.0-20.0); Blood Urea Nitrogen 18 mg/dL (9-23); Glucose 84 mg/dL (74-106)
== END | disposition home or self-care (01) ==
LOC: LAB 10:53
PROVIDERS: ATTEND Internal Medicine
DX: E78.5 Hyperlipidemia, unspecified (principal)
CPT/HCPCS: 36415; 80048